=== PATIENT | female | born 1980 | race Caucasian/White ===

== ENCOUNTER 2022-03-21 16:34 | Emergency (ER) | payer MEDICARE, MEDICAID, SELFPAY ==
--- NOTE | 2022-03-21 16:37 | XR_ITS ---
PROCEDURE INFORMATION: Exam: XR Right Wrist Exam date and time: 03/21/2022 4:50 PM Age: 41 years old Clinical indication: Injury or trauma; Other: Got right wrist caught in dog chain; Blunt trauma (contusions or hematomas); Additional info: Fall TECHNIQUE: Imaging protocol: Radiologic exam of the Right wrist. Views: 3 or more views. COMPARISON: No relevant prior studies available. FINDINGS: Bones/joints: Normal. Soft tissues: Mild soft tissue swelling. IMPRESSION: 1. Mild soft tissue swelling. 2. No evidence of acute osseous injury.
[2022-03-21 17:16] VITALS: BP 151/93; PULSE 68; RESP 17; TEMP 36.6; O2SAT 100; BMI 22.3
--- NOTE | 2022-03-21 17:25 | HMH.EDUTC ---
[facility] Disposition Clinical Impression: Wrist sprain Qualifiers: Encounter type: initial encounter Laterality: right Qualified Code(s): S63.501A - Unspecified sprain of right wrist, initial encounter Disposition: Home, Self-Care Condition on Discharge: Good Instructions: How To Perform RICE (Rest, Ice, Compress, Elevate), Ibuprofen Additional Instructions: *RICE, Rest the extremity, Ice 15-20 minutes 3-4 times daily, Compress- wear the gal wrap as discussed as much as possible to help reduce swelling and pain, Elevate the extremity when at rest *Gal wrap/Velcro wrist splint is for support and help control swelling, use it except in the shower. Be sure that is not to tight but not to loose either *Elevate when resting *Ibuprofen 600-800mg every 6-8 hours as needed for pain an inflammation. If need something more can take Tylenol in between doses of Ibuprofen to help Immediately follow up with your family doctor for new or worsening of symptoms, or no noticeable improvement over the next 3-5 days Return if needed Straight to ER if any life threatening symptoms Referrals: Provider,Referral, MD [Primary Care Provider] - As needed Medical Decision Making - [facility] Inquiry Pt receiving controlled substance: No Cornell was queried for this patient: No Vital Signs: 03/21/22 17:16 03/21/22 18:02 Temperature 97.9 F 97.9 F Temperature Source Oral Pulse Rate 68 Pulse Rate [Left] 68 Respiratory Rate 17 17 Blood Pressure 151/93 H Blood Pressure [Right Arm] 151/93 H Blood Pressure Mean [Right Arm] 112 02 Sat by Pulse Oximetry 100 Orders (Tests/Meds): ED MEDICATIONS Discontinued Medications Generic Name Dose Route Start Last Admin Trade Name Freq PRN Reason Stop Dose Admin Ketorolac Tromethamine 30 mg 03/21/22 17:28 03/21/22 17:39 Ketorolac 60mg/2ml Vial IM 03/21/22 17:29 30 mg ONCE ONE Administration - Radiology Data #1 Image(s): Wrist Image Reviewed: Yes I have reviewed radiologist's interpretation IMPRESSION: 1. Mild soft tissue swelling. 2. No evidence of acute osseous injury. [facility] HPI - General Stated complaint: AO 03/20/22 2200 Injury right wrist Time Seen by Provider: 03/21/22 17:25 Mode of Arrival: Ambulatory Source of Information: Patient Limitations: No Limitations Description of Symptoms (Recalled from Triage Doc. by RN): patient comes in for right wrist pain. patient states that she has broken that wrist before. she was trying to break up a dog fight and had the chain wrapped around her wrist, then dog pulled the chain, she tripped, and hit her wrist on a piece of wood HEENT Symptoms (Recalled from RN notes): No Resp Symptoms (Recalled from RN notes): No Skin Symptoms (Recalled from RN notes): No MS Symptoms (Recalled from RN notes): Yes Functional Status (Recalled from RN notes): n/a - History of Present Illness Provider Complaint: Patient states that she has previously broken this wrist years ago State that she was breaking up a dog fight when the chain got wrapped around her wrist and the dog took off and she tripped and fell and hit her wrist against a piece of wood State that she has been having bruising and swelling ever since - Related Data Allergies Allergy/AdvReac Type Severity Reaction Status Date / Time No Known Allergies Allergy Verified 03/21/22 17:21 - Worker's Comp Is this a Worker's Comp case?: No [facility] History - Hepatitis A Screen Attestation statement:: This patient has been screened for Hepatitis A risk factors. I have reviewed the patient's past medical history: Yes ROS Obtained: Yes All systems reviewed & no additional complaints, Yes Systems reviewed as appropriate & no additional complaints - Constitutional Constitutional: Reports system reviewed and no additional complaints, except as docu - ENT Ears, Nose, Mouth, and Throat: Reports system reviewed and no additional complaints, except as docu - Cardiovascular Cardiova
[2022-03-21 18:02] VITALS: BP 151/93; PULSE 68; RESP 17; TEMP 36.6
== END 2022-03-21 18:02 | disposition home or self-care (01) ==
PROVIDERS: Emergency Provider Nurse Practitioner
DX: S63.501A Unspecified sprain of right wrist, initial encounter (principal)
CPT/HCPCS: 73110; 96372; 99213; G0463